=== PATIENT | female | born 1970 | race Asian ===

== ENCOUNTER 2021-03-05 18:24 | Emergency (ER) | payer MEDICAID ==
[~2021-03-05] VITALS: Ht 154.9 cm; Wt 56.8 kg
[2021-03-05 18:29] VITALS: BP 152/92
[2021-03-05 18:54] LABS: CLARITY,URINE SLIGHTLY CLOUDY (Clear); COLOR,URINE YELLOW (Yellow); GLUCOSE, URINE NEGATIVE (Neg); KETONES,URINE TRACE mg/dl (Neg); LEUKOCYTE ESTERASE ,URINE SMALL (Neg); NITRITES, URINE NEGATIVE (Neg); OCCULT BLOOD,URINE LARGE (Neg); PH,URINE 5.5 (4.8-8.0); PROTEIN,URINE NEGATIVE (Neg); UROBILINOGEN,URINE 0.2 E.U/dL (0.2-1.0)
[2021-03-05 18:55] LABS: UA COLLECTION TYPE CLN CATCH MIDSTREAM
[2021-03-05 19:02] LABS: BACTERIA,URINE 2+ /HPF (Neg); MUCUS STRANDS FEW /LPF (Neg); RBC,URINE 20-50 /HPF (0-2); SQUAMOUS EPITHELIAL CELL,UR FEW /LPF (FEW)
[2021-03-05] MEDS ORDERED: CEPH250T PO (19:03)
[2021-03-05] MEDS ORDERED: cephalexin 250mg capsule PO ONE (19:05)
== END 2021-03-05 20:00 | disposition home or self-care (01) ==
LOC: ER 18:25
DX: N39.0 Urinary tract infection, site not specified (principal); Z79.2 Long term (current) use of antibiotics; Z87.440 Personal history of urinary (tract) infections
CPT/HCPCS: 81001; 87088; 99283